=== PATIENT | female | born 1950 | race Caucasian/White ===

== ENCOUNTER 2017-01-30 12:50 | Emergency (ER) | payer MEDICARE, MEDICAID ==
[~2017-01-30] VITALS: Ht 162.6 cm; Wt 76.4 kg
[2017-01-30 13:06] VITALS: BP 155/93; PULSE 92; RESP 18; O2SAT 100
[2017-01-30 14:38] VITALS: BP 142/71; PULSE 83; RESP 16; O2SAT 100
[2017-01-30 14:40] VITALS: BP 145/102; PULSE 129; RESP 21; O2SAT 100
--- NOTE | 2017-01-30 15:13 | ED.REPORT ---
HPI-General Illness Date of Service Jan 30, 2017 ED Provider: Dr. Sylvester Brown MD A 66 year old healthy female presents to the ED complaining of intermittent dizziness that began 2 weeks ago. Associated symptoms include lightheadedness, gait imbalance and numbness/tingling in the lower extremities. Patient was seen at Urgent Care this afternoon and sent to the ED for further evaluation after presenting with concerning symptoms. Patient reports that the dizziness began immediately as she woke up this morning and has become increasingly worse since onset. She has experienced similar episodes in the past that typically resolve without intervention. The episodes are often associated with a tingling in her face. Patient believes that her symptoms often become worse during periods of stress. She denies any fever, chills, nausea or vomiting. Nursing Notes Stated Complaint: DIZZINESS,TINGLING IN LEGS Chief Complaint: Neuro Symptoms/ Deficits Nursing Notes Reviewed: Yes Allergies: Coded Allergies: Penicillins (Verified Allergy, Severe, rash, really sick, 01/30/17) Sulfa (Sulfonamide Antibiotics) (Verified Allergy, Severe, rash, really sick, 01/30/17) ciprofloxacin (Verified Allergy, Intermediate, nausea and vomiting, 01/30/17 ) rofecoxib (Verified Allergy, Intermediate, really sick, 01/30/17) ibuprofen (Verified Allergy, Mild, makes her feel funny, 01/30/17) shellfish derived (Verified Allergy, Unknown, unknown, 01/30/17) General Time Seen by MD: 15:13 Chief Complaint Dizziness Hx Obtained From: Patient Arrived By: Walk-in Sudden in Onset?: No Onset Occurred: More than a week ago... (2 weeks) Symptom Duration: Intermittent Associated with: Reports: Dizziness, Denies: Fever, Nausea, Vomiting Pertinent Negative: Pt denies other symptoms Recent Healthcare: No recent doctor visit, No recent hospitalization Past Medical History Past Medical History Notes: PCP: Dr. Bridger Suárez [facility] Past Medical History Undiagnosed tachycardia Thyroid nodules Patient reports a previous ear injury that affected gait stability Past Surgical History Hysterectomy Thyroid nodules biopsy Smoking History Unknown if Ever Smoker Social History Other Social History: Good social support, Local resident Ambulatory Status Independent Review of Systems Full Review of Systems Constitutional: Denies: Chills, Fever GI: Denies: Nausea, Vomiting Neurologic: Reports: Dizziness, Lightheaded, Numbness, Denies: Change LOC Psychiatric: Reports: Stress Complete sys rev & neg: except as marked. Physical Exam Vital Signs Vital Signs Date Time Temp Pulse Resp B/P Pulse Ox O2 Delivery O2 Flow Rate FiO2 01/30/17 16:21 78 18 146/81 100 Room Air 01/30/17 14:40 129 21 145/102 100 Room Air 01/30/17 14:38 83 16 142/71 100 Room Air 01/30/17 13:06 36.9 92 18 155/93 100 Room Air Initial VS: Reviewed Extremities: Vascular intact, Neuro intact, No swelling, No tenderness Skin: Warm, Dry, No cyanosis Psychiatric: Mood/affect normal, Behavior normal, Normal thought content General/Constitutional: Awake, Alert, No acute distress Head / Eyes: Atraumatic, Normocephalic, PERRL, EOMI, No nystagmus Neck: Atraumatic, Supple, No carotid bruit Soft Tissue Neck: Positive: Thyroid enlarged Respiratory / Chest: Atraumatic, Breath sounds NL, Breath sounds = bilat, No respiratory distress Cardiovascular: Heart rate NL, Regular rhythm, No gallop, No rubs Heart Sounds / Murmur: Positive: Murmur present... (III/; upper right sternal boarder) Neurologic: Oriented X3, Speech NL, No motor deficits, Gait NL (ambulatory with steady gait; unable to perform tandem walk ) Cerebellar Dysfunction: Positive: Ataxia peripheral (Left hand ataxia) Movement Abnormality: Positive: Tremor (Fine generalized tremor) NEURO: Unable to perform tandem walk (worse than baseline) Left upper nasal - partial visual field cut No ataxia in the lower extremities No facial droop Interpretation & Diagnostics BRAIN MRI w/o contrast Read by Radiology IMPRESSION: No acute intracranial abnormalities. Dictated by: Frankie Murphy M.D. on 01/30/2017 at 16:52 Lab Results Interpretation Result Diagram: 01/30/17 1505 01/30/17 1505 Test 01/30/17 15:05 01/30/17 16:00 White Blood Count 7.3th/mm3 (3.8-10.1) Red Blood Count 5.19mil/mm3 (3.90-5.20) Hemoglobin 15.1g/dL (12.0-15.6) Hematocrit 44.2% (35.0-46.0) Mean Corpuscular Volume 85.2fL (81-100) Mean Corpuscular Hemoglobin 29.1pg (27.0-35.0) Mean Corpuscular Hemoglobin Concent 34.2% (32.0-37.0) Red Cell Distribution Width 13.8% (12.3-15.4) Platelet Count 206bil/L (150-400) Neutrophils (%) (Auto) 66.9% (40-74) Lymphocytes (%) (Auto) 23.2% (14-46) Monocytes (%) (Auto) 6.3% (4-12) Eosinophils (%) (Auto) 2.9% (0-5) Basophils (%) (Auto) 0.3% (0-3) Prothrombin Time 10.0sec (8.1-12.5) Prothromb Time International Ratio 0.94ratio Sodium Level 138mEq/L (134-144) Potassium Level 3.9mEq/L (3.5-5.2) Chloride Level 98mEq/L (97-108) Carbon Dioxide Level 20mmol/L (18-29) Blood Urea Nitrogen 9mg/dL (8-27) Creatinine 0.78mg/dL (0.57-1.00) Estimat Glomerular Filtration Rate 106mL/min (>59) Glucose Level 99mg/dL (60-99) Calcium Level 10.0mg/dL (8.5-10.1) Magnesium Level 2.1mg/dL (1.6-2.6) Total Bilirubin 0.5mg/dL (0.0-1.2) Aspartate Amino Transf (AST/SGOT) 20U/L (0-50) Alanine Aminotransferase (ALT/SGPT) 11U/L (0-32) Alkaline Phosphatase 49U/L (25-165) Troponin T < 0.010ug/L (0.0-0.011) Pro-B-Type Natriuretic Peptide 48.51pg/mL (0-301) Total Protein 7.8g/dL (6.4-8.4) Albumin 4.6g/dL (3.4-5.0) Lipase 32U/L (13-60) Urine Color Straw (YELLOW) Urine Appearance Clear (CLEAR,HAZY) Urine pH 7.5 (5.0-8.0) Urine Specific [place] 1.005 (1.003-1.035) Urine Protein Negativemg/dL (NEG,TRACE) Urine Glucose (UA) Negativemg/dL (NEGATIVE) Urine Ketones Tracemg/dL (NEGATIVE) Urine Occult Blood Small (NEGATIVE) Urine Nitrite Negative (NEGATIVE) Urine Bilirubin Negative (NEGATIVE) Urine Urobilinogen Normalmg/dL (NORMAL) Urine Leukocyte Esterase Moderate (NEGATIVE) Urine RBC 0-2/hpf (0-2) Urine WBC 6-10/hpf (0-5) Urine Epithelial Cells Moderate/hpf (NONE-MOD) Urine Crystals None seen (NONE SEEN) Urine Bacteria Few/hpf (NONE-FEW) Urine Hyaline Casts None/lpf (NONE) Urine Granular Casts None seen (NONE SEEN) Urine Waxy Casts None seen (NONE SEEN) Urine Red Blood Cell Casts None seen (NONE SEEN) Urine White Blood Cell Casts None seen (NONE SEEN) Urine Mucus Present (None Seen) Urine Trichomonas None seen (NONE SEEN) Urine Yeast None (NONE SEEN) Urinalysis Comment None Urine Culture Reflexed Indicated ECG Interpretation ECG Interpretation: Normal sinus rhythm No acute Rate 79 Time: 15:05 Interpreted by: ED physician Re-Eval/Medical Decision Med Decision/Clinical Course complaint of dizziness/feeling weak. Has been ongoing all day today and intermittent for a few days. baseline cannot do tandem walk. Pt thinks this is stress related. Have done MR brain and no post fossa stroke. Had tachycardia on orthostatics, says this is not unusal for her. After NS 1 L feels better. No evidence of acute blood loss or infection. Will DC home. Time of Eval: 18:38 Patient Status: Condition improved Re-Evaluation/Progress Note: Patient is re-evaluated. She is informed of her reassuring MRI results, lab results and diagnosis. Heart rate 88 when sitting up. All of the patient's questions are addressed. She understands and agrees with the treatment plan. Counseled Regarding: Diagnosis, Lab results, Need for follow-up, When/why to return to ED Discharge & Departure Primary Impression: Dehydration Additional Impression: Dizziness Disposition: Home Discharge Condition All VS Reviewed: Yes Condition: Stable Patient Instructions: Dehydration (ED) Additional Instructions: Thank you for trusting us with your care this afternoon. Your emergency department evaluation today included interview, examination, lab work, EKG and MRI. Your evaluation is reassuring that there is no dangerous cause for concern at this time, there may be some dehydration. I recommend that you drink Gatorade to keep yourself hydrated. It is important that you drink plenty of fluids for the next few days. Schedule a follow up appointment with your primary care physician in the next 2- 3 days for a recheck. Please return to the ED if you develop shortness of breath, chest pain, numbness /tingling, dizziness, lightheadedness or any other concerning signs or symptoms. Referrals: Bridger Suárez MD Attestation Portions of this note were transcribed by Marlen Mares. I, Dr. Brown personally performed the history, physical exam and medical decision-making; I reviewed and confirmed the accuracy of the information in the transcribed note. Signed by: Eugenia Kwon, 01/29/17 [id number]. copies to: Bridger Suárez MD, Donald L MD Jan 30, 2017 15:13 MARLEN MARES Jan 30, 2017 15:23
[2017-01-30] MEDS ORDERED: 0.9% Sodium Chloride 1,000 ML IV ONE (15:34)
[2017-01-30 16:07] LABS: BASOPHILS % (AUTO) 0.3 % (0-3); EOSINOPHILS % (AUTO) 2.9 % (0-5); MONOCYTES % (AUTO) 6.3 % (4-12); Mean Corpuscular Hemoglobin 29.1 pg (27.0-35.0); Mean Corpuscular Volume 85.2 fL (81-100); NEUTROPHILS % (AUTO) 66.9 % (40-74); Platelet Count 206 bil/L (150-400)
[2017-01-30 16:09] LABS: INR 0.94 ratio
[2017-01-30 16:21] VITALS: BP 146/81; PULSE 78; RESP 18; O2SAT 100
[2017-01-30 16:28] LABS: Lipase 32 U/L (13-60); Magnesium 2.1 mg/dL (1.6-2.6)
[2017-01-30 16:42] LABS: APPEARANCE,URINE CLEAR (CLEAR,HAZY); COLOR,URINE STRAW (YELLOW); PH,URINE 7.5 (5.0-8.0)
[2017-01-30 16:43] LABS: OCCULT BLOOD,URINE SMALL (NEGATIVE); UROBILINOGEN,URINE NORMAL (NORMAL)
--- NOTE | 2017-01-30 17:04 | DRSVH ---
PROCEDURE: MRI BRAIN WITHOUT CONTRAST ([id number]) INDICATIONS: persistent vertigo, visual field cut, ataxia TECHNIQUE: Non-contrast axial T1 spin echo, axial T2 fast spin echo, sagittal and axial FLAIR, coronal T2 fast s pin echo, axial gradient echo, axial diffusion and ADC through the brain. COMPARISON: None. FINDINGS: Image quality: Excellent. CSF spaces: Ventricles appear symmetric in size and shape. Basal cisterns are patent. No extra-axi al fluid collections. Brain: No intracranial bleeds or mass effects. There is cerebral volume loss for age. There are mi nimal periventricular and deep white matter chronic small vessel ischemic changes. Brainstem appears normal. Diffusion-weighted images show no acute ischemic insults. No chronic ischemic insults. No rmal intravascular flow voids are present. Skull and face: Calvarial bone marrow is normal in signal. Orbits are normal. Sinuses: Sinuses and mastoids are clear. IMPRESSION: No acute intracranial abnormalities. Dictated by: Frankie Murphy M.D. on 01/30/2017 at 16:52 Approved by: Frankie Murphy M.D. on 01/30/2017 at 17:02
[2017-01-30 17:31] LABS: TROPONIN T < 0.010 ug/L (0.0-0.011)
== END 2017-01-30 19:05 | disposition home or self-care (01) ==
LOC: SED 12:50
DX: E86.0 Dehydration (principal); R42 Dizziness and giddiness; R26.89 Other abnormalities of gait and mobility; R20.0 Anesthesia of skin; R20.2 Paresthesia of skin; Z88.0 Allergy status to penicillin; Z88.1 Allergy status to other antibiotic agents; Z88.2 Allergy status to sulfonamides; Z88.8 Allergy status to other drugs, medicaments and biological substances; Z91.013 Allergy to seafood
CPT/HCPCS: 70551; 80053; 81000; 83690; 83735; 83880; 84484; 85025; 85610; 87086; 87088; 93005; 96360; 99285; J7030